=== PATIENT | male | born 1975 | race Caucasian/White ===

== ENCOUNTER → 2024-04-19 12:33 | Outpatient (REF) | payer BC, SELFPAY | LOC: HWRCS 12:33 | PROVIDERS: ATTENDING PHYSICIAN Thoracic Surgery (Cardiothoracic Vascular Surgery); FAMILY PHYSICIAN Internal Medicine Cardiovascular Disease | DX: Z98.890 Other specified postprocedural states (principal) | CPT/HCPCS: 93306 ==